=== PATIENT | female | born 1995 | race Caucasian/White ===

== ENCOUNTER 2017-01-02 19:37 | Emergency (ER) | payer MEDICAID ==
[2017-01-02 19:49] VITALS: BP 125/73; PULSE 93; RESP 15; TEMP 98.2; O2SAT 98
--- NOTE | 2017-01-02 20:20 | ED PDOC ---
HPI: Abdomen Time Seen by Provider: 01/02/17 19:55 Chief Complaint (Nursing): Rib Injury Chief Complaint (Provider): Abdominal pain History Per: Patient Additional Complaint(s): Patient is a 21 yo female, no PMH, presents to ED with complaints of complaining of intermittent left sided flank pain, worse with breathing at times , x 2 days. Pt reports the pain developed when she was at work yesterday and she had to go home early. Pt called out of work today and reports needing a note. No fever or chills. no nausea or vomiting. no uti like complaints. no analgesics taken thus far. Past Medical History Reviewed: Nursing Documentation, Vital Signs Vital Signs: Last Vital Signs Temp 98.2 F 01/02/17 19:45 Pulse 93 H 01/02/17 19:45 Resp 15 01/02/17 19:45 BP 125/73 01/02/17 19:45 Pulse Ox 98 01/02/17 20:20 - Medical History PMH: No Chronic Diseases - Surgical History Surgical History: No Surg Hx - Family History Family History: States: Unknown Family Hx - Living Arrangements Living Arrangements: With Family - Social History Current smoker - smoking cessation education provided: No Alcohol: None Drugs: Denies - Home Medications Home Medications: Ambulatory Orders Medication Instructions Recorded Naproxen [Naprosyn Tab] 250 mg PO BID PRN #20 tab 11/02/15 Naproxen [Naprosyn] 500 mg PO BID PRN #20 tablet 03/04/16 Cyclobenzaprine [Cyclobenzaprine 10 mg PO TID #20 tab 01/02/17 HCl] Ibuprofen [Motrin] 600 mg PO Q6 #20 tab 01/02/17 - Allergies Allergies/Adverse Reactions: Allergies Allergy/AdvReac Type Severity Reaction Status Date / Time No Known Allergies Allergy Verified 11/02/15 12:03 Review of Systems ROS Statement: Except As Marked, All Systems Reviewed And Found Negative Gastrointestinal: Positive for: Abdominal Pain Physical Exam - Reviewed Nursing Documentation Reviewed: Yes Vital Signs Reviewed: Yes - Physical Exam Appears: Positive for: Well, Non-toxic, No Acute Distress Head Exam: Positive for: ATRAUMATIC, NORMAL INSPECTION, NORMOCEPHALIC Skin: Positive for: Normal Color, Warm, DRY Eye Exam: Positive for: EOMI, Normal appearance, PERRL ENT: Positive for: Normal ENT Inspection Neck: Positive for: Normal, Painless ROM Cardiovascular/Chest: Positive for: Regular Rate, Rhythm Respiratory: Positive for: CNT, Normal Breath Sounds Gastrointestinal/Abdominal: Positive for: Bowel Sounds, Soft, Tenderness (mild left sided flank tenderness) Back: Positive for: Normal Inspection Extremity: Positive for: Normal ROM Neurologic/Psych: Positive for: Alert, Oriented - Laboratory Results Result Diagrams: 01/02/17 20:25 01/02/17 20:25 - ECG O2 Sat by Pulse Oximetry: 98 Medical Decision Making Medical Decision Making: Pt medicated with Toradol, good relief obtained. Diagnostics ordered Labs resulted and reviewed with Pt who demonstrated full understanding CXR: NAd, as read by VALERIE Pt reports feeling better and asking to go home with work note Disposition - Clinical Impression Clinical Impression: Flank pain - Patient ED Disposition Is Patient to be Admitted: No - Disposition Disposition: Routine/Home Disposition Time: 22:15 Condition: STABLE Prescriptions: Cyclobenzaprine [Cyclobenzaprine HCl] 10 mg PO TID #20 tab Ibuprofen [Motrin] 600 mg PO Q6 #20 tab Instructions: Flank Pain (ED) Forms: [facility] ED School/Work Excuse - POA Present On Arrival: None
[2017-01-02 20:32] LABS: BASO # 0.1 K/uL (0.0-0.2); BASO % 0.7 % (0.0-2.0); EOS # 0.1 K/uL (0.0-0.7); EOS % 1.1 % (0.0-4.0); HEMOGLOBIN 14.1 g/dL (12.0-16.0); LYMPH # 2.6 K/uL (1.0-4.3); LYMPH % 31.4 % (20.0-40.0); MEAN CELL VOLUME 95.3 fl (81.0-99.0); MEAN CORPUSCULAR HEMOGLOBIN 32.5 pg (27.0-31.0); MEAN CORPUSCULAR HGB CONC 34.1 g/dL (33.0-37.0); MEAN PLATELET VOLUME 9.4 fl (7.2-11.7); MONO # 0.6 K/uL (0.0-0.8); MONO % 7.1 % (0.0-10.0); NEUT # 4.9 K/uL (1.8-7.0); NEUT % 59.7 % (50.0-75.0); NRBC % 0.1 % (0.0-0.0); RBC 4.34 Mil/uL (3.80-5.20); RED CELL DISTRIBUTION WIDTH 12.8 % (11.5-14.5); WHITE BLOOD COUNT 8.2 K/uL (4.8-10.8)
[2017-01-02 20:39] LABS: ALB/GLOB RATIO 1.8 (1.0-2.1); ALBUMIN 4.5 g/dL (3.5-5.0); ALT/SGPT 33 U/L (9-52); AMYLASE 64 U/L (30-110); AST/SGOT 21 U/L (14-36); BLOOD UREA NITROGEN 15 mg/dl (7-17); CALCIUM 9.2 mg/dL (8.4-10.2); GFR AFRICAN-AMERICAN > 60; GFR NON-AFRICAN AMERICAN > 60; LIPASE 182 U/L (23-300)
[2017-01-02 21:38] LABS: SQUAMOUS EPITHIAL 8 /hpf (0-5); URINE BACTERIA RARE (<OCC); URINE BILIRUBIN NEGATIVE (NEGATIVE); URINE BLOOD NEGATIVE (NEGATIVE); URINE CLARITY CLOUDY (Clear); URINE COLOR YELLOW (YELLOW); URINE GLUCOSE (UA) NEG (Normal); URINE LEUKOCYTE ESTERASE NEG Leu/uL (Negative); URINE NITRATE NEGATIVE (NEGATIVE); URINE PROTEIN 30 mg/dL (NEGATIVE)
--- NOTE | 2017-01-03 10:34 | RAD ---
HISTORY: left rib pain COMPARISON: Chest dated 08/08/2016 TECHNIQUE: Chest PA and lateral FINDINGS: LUNGS: No active pulmonary disease. PLEURA: No significant pleural effusion identified. No pneumothorax apparent. CARDIOVASCULAR: Normal. OSSEOUS STRUCTURES: No significant abnormalities. VISUALIZED UPPER ABDOMEN: Normal. OTHER FINDINGS: . In situ bilateral nipple rings. IMPRESSION: No active disease.
== END 2017-01-02 22:37 | disposition home or self-care (01) ==
LOC: H.ER 19:37
DX: R10.9 Unspecified abdominal pain (principal)

== ENCOUNTER 2017-05-24 20:45 | Emergency (ER) | payer MEDICAID ==
[2017-05-24 20:58] VITALS: BP 103/63; PULSE 94; RESP 16; TEMP 98; O2SAT 97
--- NOTE | 2017-05-24 21:17 | ED PDOC ---
HPI: Female Pain Time Seen by Provider: 05/24/17 20:59 Chief Complaint (Nursing): Female Genitourinary Chief Complaint (Provider): vaginal pain History Per: Patient History/Exam Limitations: no limitations Onset/Duration Of Symptoms: Days (2 weeks) Current Symptoms Are (Timing): Still Present Quality Of Discomfort: Cramping Additional Complaint(s): Vaginal burning and pain for 2 weeks worsening since onset, today after sexual intercourse, pain worsened associated with some blood when wiping, however she also reports that she is due for her period. +dysuria. No frequency. No discharge. Reports that she believes her vaginal area appears very red. Past Medical History Reviewed: Historical Data, Nursing Documentation, Vital Signs Vital Signs: Last Vital Signs Temp 98 F 05/24/17 20:56 Pulse 94 H 05/24/17 20:56 Resp 16 05/24/17 20:56 BP 103/63 05/24/17 20:56 Pulse Ox 97 05/24/17 20:56 - Medical History PMH: No Chronic Diseases - Surgical History Surgical History: No Surg Hx - Family History Family History: States: Diabetes - Social History Current smoker - smoking cessation education provided: Yes Alcohol: None - Home Medications Home Medications: Ambulatory Orders Medication Instructions Recorded Naproxen [Naprosyn Tab] 250 mg PO BID PRN #20 tab 11/02/15 Naproxen [Naprosyn] 500 mg PO BID PRN #20 tablet 03/04/16 Cyclobenzaprine [Cyclobenzaprine 10 mg PO TID #20 tab 01/02/17 HCl] Ibuprofen [Motrin] 600 mg PO Q6 #20 tab 01/02/17 Fluconazole [Diflucan] 150 mg PO QWK #2 tab 05/24/17 Ibuprofen [Motrin Tab] 600 mg PO Q8 PRN #60 tab 05/24/17 - Allergies Allergies/Adverse Reactions: Allergies Allergy/AdvReac Type Severity Reaction Status Date / Time No Known Allergies Allergy Verified 11/02/15 12:03 Review of Systems ROS Statement: Except As Marked, All Systems Reviewed And Found Negative Gastrointestinal: Negative for: Nausea, Vomiting, Abdominal Pain Genitourinary Female: Positive for: Dysuria, Vaginal Bleeding, Pelvic Pain. Negative for: Frequency, Hematuria, Vaginal Discharge Physical Exam - Reviewed Nursing Documentation Reviewed: Yes Vital Signs Reviewed: Yes - Physical Exam Appears: Positive for: Non-toxic, In Acute Distress (mild painful) Head Exam: Positive for: ATRAUMATIC, NORMOCEPHALIC Skin: Positive for: Warm, Dry Gastrointestinal/Abdominal: Positive for: Soft. Negative for: Tenderness Pelvic Exam: Positive for: No Cerv. Motion Tender, Blood (just prior to exam pt reports that it looks like her period has started), Other (External genitalia with erythema at vulva. No visible lesions or papules.) Back: Positive for: Normal Inspection Lymphatic: Negative for: Inguinal Node Tenderness Neurologic/Psych: Positive for: Alert. Negative for: Motor/Sensory Deficits - Laboratory Results Urine dip results: Positive for: Blood, Ketones, Bilirubin, Protein. Negative for: Leukocyte Esterase, Nitrate, Glucose - ECG O2 Sat by Pulse Oximetry: 97 Disposition - Clinical Impression Clinical Impression: Dysmenorrhea in adolescent, Vaginitis Counseled Patient/Family Regarding: Studies Performed, Diagnosis, Need For Followup, Rx Given - Disposition Disposition: Routine/Home Disposition Time: 22:00 Condition: STABLE Additional Instructions: FOLLOW UP WITH THE [facility] IN 2 WEEK FOR REEVALUATION Prescriptions: Fluconazole [Diflucan] 150 mg PO QWK #2 tab Ibuprofen [Motrin Tab] 600 mg PO Q8 PRN #60 tab PRN Reason: Pain, Moderate (4-7) Instructions: Vaginitis (ED), Dysmenorrhea (ED)
== END 2017-05-24 22:39 | disposition home or self-care (01) ==
LOC: H.ER 20:45
DX: N76.0 Acute vaginitis (principal); N94.6 Dysmenorrhea, unspecified

== ENCOUNTER 2017-11-13 08:48 | Emergency (ER) | payer MEDICAID, OTHER ==
[2017-11-13 08:52] VITALS: O2SAT 100
[2017-11-13 08:53] VITALS: BMI 29.5
[2017-11-13] MEDS ORDERED: Sodium Chloride 0.9% 1,000 ML IV STA (09:16)
--- NOTE | 2017-11-13 09:19 | ED PDOC ---
HPI: Female Pain Time Seen by Provider: 11/13/17 08:58 Chief Complaint (Nursing): Abdominal Pain Chief Complaint (Provider): pelvic pain History Per: Patient History/Exam Limitations: no limitations Onset/Duration Of Symptoms: Days (5 weeks) Current Symptoms Are (Timing): Still Present Additional Complaint(s): Pt. with pelvic cramps like her period. Is 5 weeks preg. No vaginal bleeding , chest pain, dyspnea, weakness. Has nausea, no vomit. Has headache to the left frontal area but is not the worst in her life. Is like her usual migraines. Gradual onset. No neck pain, numbness, tingles, vision changes. Past Medical History Reviewed: Nursing Documentation, Vital Signs Vital Signs: Last Vital Signs Temp 97 F L 11/13/17 08:52 Pulse 112 H 11/13/17 08:52 Resp 16 11/13/17 08:59 BP 119/73 11/13/17 08:52 Pulse Ox 100 11/13/17 08:52 - Medical History PMH: Migraine - Surgical History Surgical History: No Surg Hx - Family History Family History: States: Unknown Family Hx - Home Medications Home Medications: Ambulatory Orders Medication Instructions Recorded Naproxen [Naprosyn Tab] 250 mg PO BID PRN #20 tab 11/02/15 Naproxen [Naprosyn] 500 mg PO BID PRN #20 tablet 03/04/16 Cyclobenzaprine [Cyclobenzaprine 10 mg PO TID #20 tab 01/02/17 HCl] Ibuprofen [Motrin] 600 mg PO Q6 #20 tab 01/02/17 Fluconazole [Diflucan] 150 mg PO QWK #2 tab 05/24/17 Ibuprofen [Motrin Tab] 600 mg PO Q8 PRN #60 tab 05/24/17 Nitrofurantoin Macrocrystals 100 mg PO BID #10 cap 11/13/17 [Macrobid] - Allergies Allergies/Adverse Reactions: Allergies Allergy/AdvReac Type Severity Reaction Status Date / Time No Known Allergies Allergy Verified 11/02/15 12:03 Review of Systems ROS Statement: Except As Marked, All Systems Reviewed And Found Negative Gastrointestinal: Positive for: Nausea Genitourinary Female: Positive for: Pelvic Pain Neurological: Positive for: Headache Physical Exam - Reviewed Nursing Documentation Reviewed: Yes Vital Signs Reviewed: Yes - Physical Exam Appears: Positive for: Non-toxic, No Acute Distress Head Exam: Positive for: ATRAUMATIC, NORMAL INSPECTION, NORMOCEPHALIC Skin: Positive for: Normal Color, Warm, DRY Eye Exam: Positive for: EOMI, Normal appearance, PERRL ENT: Positive for: Normal ENT Inspection Neck: Positive for: Normal, Painless ROM, Supple Cardiovascular/Chest: Positive for: Regular Rate, Rhythm Respiratory: Positive for: CNT, Normal Breath Sounds Gastrointestinal/Abdominal: Positive for: Normal Exam, Soft. Negative for: Tenderness Back: Positive for: Normal Inspection. Negative for: L CVA Tenderness, R CVA Tenderness Extremity: Positive for: Normal ROM. Negative for: Tenderness, Pedal Edema Neurologic/Psych: Positive for: Alert, nutter up II-XII, Oriented. Negative for: Motor/Sensory Deficits, Aphasia, Facial Droop - Laboratory Results Result Diagrams: 11/13/17 09:49 11/13/17 09:49 Interpretation Of Abn Labs: bhcg elevated; urine wbc Urine POC: Positive Urine dip results: Positive for: Leukocyte Esterase - ECG O2 Sat by Pulse Oximetry: 100 Pulse Ox Interpretation: Normal - CT Scan/US US Other Rad Studies (CT/US): Read By Radiologist Other Rad Interpretation: gestational sac - Progress ED Course And Treament: 1216: No pain. Stable. AAOx3. Tolerated PO. Fu with obgyn in 3 days. Pt. to come back or see obgyn in 3 days for repeat US and beta hcg to make sure no ectopic present. No pole seen. Disposition - Clinical Impression Clinical Impression: Threatened , UTI (urinary tract infection) - Patient ED Disposition Is Patient to be Admitted: No Counseled Patient/Family Regarding: Studies Performed, Diagnosis, Need For Followup - Disposition [facility]errals[facility] - 11/15/17 Disposition: Routine/Home Disposition Time: 12:18 Condition: STABLE Additional Instructions: Return in 3 days or go to your obgyn for repeat ultrasound and beta hcg level. We need to get further evaluation to make sure your is progressing and there is ectopic (which can be harmful to you). Prescriptions: Nitrofurantoin Macrocrystals [Macrobid] 100 mg PO BID #10 cap Instructions: Urinary Tract Infections in Adults, Threatened Miscarriage (DC) Forms: [employer] ([place]ese), [facility] ED School/Work Excuse
[2017-11-13 10:03] LABS: BLOOD UREA NITROGEN 10 mg/dl (7-17); CALCIUM 9.6 mg/dL (8.4-10.2); GFR AFRICAN-AMERICAN > 60; GFR NON-AFRICAN AMERICAN > 60
[2017-11-13 10:06] LABS: SQUAMOUS EPITHIAL 30 /hpf (0-5); URINE AMORPHOUS SEDIMENT RARE /ul (<OCC); URINE BILIRUBIN NEGATIVE (NEGATIVE); URINE BLOOD NEGATIVE (NEGATIVE); URINE CLARITY TURBID (Clear); URINE COLOR AMBER (YELLOW); URINE GLUCOSE (UA) NEG (Normal); URINE LEUKOCYTE ESTERASE MOD Leu/uL (Negative); URINE PROTEIN 100 mg/dL (NEGATIVE); URINE UROBILINOGEN 0.2-1.0 mg/dL (0.2-1.0)
[2017-11-13 10:22] LABS: BASO % 0.4 % (0.0-2.0); EOS % 0.7 % (0.0-4.0); HEMOGLOBIN 15.3 g/dL (12.0-16.0); LYMPH # 1.8 K/uL (1.0-4.3); MEAN CELL VOLUME 93.8 fl (81.0-99.0); MEAN CORPUSCULAR HEMOGLOBIN 33.7 pg (27.0-31.0); MEAN CORPUSCULAR HGB CONC 35.9 g/dL (33.0-37.0); MONO # 0.5 K/uL (0.0-0.8); MONO % 7.1 % (0.0-10.0); NEUT # 4.7 K/uL (1.8-7.0); NEUT % 66.8 % (50.0-75.0); NRBC % 0.2 % (0.0-0.0); RBC 4.54 Mil/uL (3.80-5.20); RED CELL DISTRIBUTION WIDTH 12.2 % (11.5-14.5); WHITE BLOOD COUNT 7.1 K/uL (4.8-10.8)
--- NOTE | 2017-11-13 11:48 | US ---
PROCEDURE: OB Pelvic Ultrasound HISTORY: preg and pain COMPARISON: None available. FINDINGS: UTERUS: Intrauterine gestational sac identified. pole not visualized. Gestational sac diameter 13 mm, equivalent to 5 weeks 4 days gestation Date of delivery (Ultrasound estimated) : 05/12/2019 No detectable cardiac activity [place]-gestational hemorrhage: None. 2 mm yolk sac visualized. Uterus measures 7.7 x 4.5 x 6.3 cm. No mass CERVIX: Long and closed. No cervical abnormality seen. RIGHT OVARY: Measures 2.9 x 1.4 x 2.1 cm. No mass. Normal flow. LEFT OVARY: Measures 3.0 x 1.9 x 3.0 cm. No mass. Normal flow. Corpus luteum, 1.4 x 1.4 x 1.8 cm. FREE FLUID: None. OTHER FINDINGS: None. IMPRESSION: Intrauterine gestational sac equivalent to 5 weeks 4 days by sac diameter. No pole or cardiac activity observed. Followup with transvaginal pelvic ultrasound and serial beta HCG advised.
[2017-11-13 12:36] VITALS: BP 108/61; PULSE 80; RESP 18; TEMP 98.8
== END 2017-11-13 12:34 | disposition home or self-care (01) ==
LOC: H.ER 08:48
DX: O20.0 Threatened abortion (principal); O23.41 Unspecified infection of urinary tract in pregnancy, first trimester; Z3A.01 Less than 8 weeks gestation of pregnancy
CPT/HCPCS: 76817; 80048; 81003; 81025; 84702; 85025; 86850; 86900; 96360; 99285; J2765; J7040

== ENCOUNTER 2017-11-16 11:09 | Emergency (ER) | payer MEDICAID, OTHER ==
[2017-11-16 11:27] VITALS: BMI 29.2
--- NOTE | 2017-11-16 12:16 | ED PDOC ---
HPI: Female Pain Time Seen by Provider: 11/16/17 11:48 Chief Complaint (Nursing): Female Genitourinary Chief Complaint (Provider): Repeat bhcg History Per: Patient History/Exam Limitations: no limitations Onset/Duration Of Symptoms: Days (3) Current Symptoms Are (Timing): Still Present Additional Complaint(s): Pt. with pelvic pain Sat so came and had evaluation. Dx with preg and no pole. Advised to repeat blood work and get a repeat US. Pt. here for repeat eval. Did not go to her OBGYN. Has no pain, weakness, nausea, vomit, diarrhea , vaginal bleeding. Past Medical History Reviewed: Nursing Documentation, Vital Signs Vital Signs: Last Vital Signs Temp 97 F L 11/16/17 11:25 Pulse 90 11/16/17 11:25 Resp BP 97/66 L 11/16/17 11:25 Pulse Ox 99 11/16/17 11:25 - Medical History PMH: Migraine - Surgical History Surgical History: No Surg Hx - Family History Family History: States: Unknown Family Hx - Home Medications Home Medications: Ambulatory Orders Medication Instructions Recorded Naproxen [Naprosyn Tab] 250 mg PO BID PRN #20 tab 11/02/15 Naproxen [Naprosyn] 500 mg PO BID PRN #20 tablet 03/04/16 Cyclobenzaprine [Cyclobenzaprine 10 mg PO TID #20 tab 01/02/17 HCl] Ibuprofen [Motrin] 600 mg PO Q6 #20 tab 01/02/17 Fluconazole [Diflucan] 150 mg PO QWK #2 tab 05/24/17 Ibuprofen [Motrin Tab] 600 mg PO Q8 PRN #60 tab 05/24/17 Nitrofurantoin Macrocrystals 100 mg PO BID #10 cap 11/13/17 [Macrobid] - Allergies Allergies/Adverse Reactions: Allergies Allergy/AdvReac Type Severity Reaction Status Date / Time No Known Allergies Allergy Verified 11/02/15 12:03 Review of Systems ROS Statement: Except As Marked, All Systems Reviewed And Found Negative Physical Exam - Reviewed Nursing Documentation Reviewed: Yes Vital Signs Reviewed: Yes - Physical Exam Appears: Positive for: Well, Non-toxic, No Acute Distress Head Exam: Positive for: ATRAUMATIC, NORMAL INSPECTION, NORMOCEPHALIC Skin: Positive for: Normal Color, Warm, DRY Eye Exam: Positive for: EOMI, Normal appearance, PERRL ENT: Positive for: Normal ENT Inspection Neck: Positive for: Normal, Painless ROM Cardiovascular/Chest: Positive for: Regular Rate, Rhythm Respiratory: Positive for: CNT, Normal Breath Sounds Gastrointestinal/Abdominal: Positive for: Normal Exam, Soft. Negative for: Tenderness Back: Positive for: Normal Inspection Extremity: Positive for: Normal ROM Neurologic/Psych: Positive for: Alert, Oriented - ECG O2 Sat by Pulse Oximetry: 99 Pulse Ox Interpretation: Normal - Progress ED Course And Treament: 1457: Stable. AAOx3. Pain free. Tolerated PO. Fu with pcp. Disposition - Clinical Impression Clinical Impression: Threatened - Patient ED Disposition Is Patient to be Admitted: No Counseled Patient/Family Regarding: Studies Performed, Diagnosis, Need For Followup - Disposition Referrals: [facility] [Outside] - 11/17/17 [facility] [[facility] - 11/17/17 Disposition: Routine/Home Disposition Time: 14:58 Condition: STABLE Additional Instructions: Return if not better in 3 days. Instructions: Threatened Miscarriage
--- NOTE | 2017-11-16 15:14 | US ---
HISTORY: preg and pain COMPARISON: 11/13/2017. TECHNIQUE: Standard protocol for this study/examination. FINDINGS: LMP: 10/07/2017 Prior examinations from the current : 11/13/2017 TECHNIQUE: Real-time 2D imaging, duplex and color Doppler. FINDINGS: Cardiac activity: Present Rate: 116 BPM Measurements: Shellman rump length: 0.27 cm Gestational age based on CRL 5 weeks 6 days Gestational age 5 weeks 4 days based on gestational sac measurement 1.3 80 cm Gestational age derived from LMP: 5 weeks 5 days GAYATHRI based on LMP: 07/14/2018 GAYATHRI based on biometry: 07/14/2018 Gestational concordance documented Yolk sac identified Uterus: Unremarkable. Cervix: No Cervical abnormalities: Negative examination for cervical dilatation or effacement. Closed cervix measuring 4.2 cm Incidental finding: Nabothian cysts the largest measures less than 1 cm. Subchorionic hemorrhage: None UTERUS: 4.5 x 6.4 x 9.2 cm. ADNEXA: Right: 1.2 x 2 x 3.1 cm. Normal Doppler arterial waveform documented. Left: 2 x 2.7 x 2.8 cm. Multiple subcentimeter follicles. Simple cyst 1.5 x 1 x 1.7 cm. Normal Doppler arterial waveform documented Fluid in the cul-de-sac: OTHER FINDINGS: None. IMPRESSION: Five weeks 5 days live intrauterine gestation. Gestational concordance documented.
[2017-11-16 15:25] VITALS: BP 108/68; PULSE 66; RESP 16; TEMP 98.2; O2SAT 100
== END 2017-11-16 15:00 | disposition home or self-care (01) ==
LOC: H.ER 11:09
DX: O20.0 Threatened abortion (principal)

== ENCOUNTER 2018-06-09 11:42 | Emergency (ER) | payer OTHER ==
[2018-06-09 18:59] VITALS: BP 112/69; PULSE 84; RESP 18; TEMP 98; O2SAT 100
== END 2018-06-09 14:40 | disposition home or self-care (01) ==
LOC: H.EROB2 11:42 → H.L&D 12:24 → H.EROB2 14:40
DX: O34.63 Maternal care for abnormality of vagina, third trimester (principal); N89.8 Other specified noninflammatory disorders of vagina; Z3A.35 35 weeks gestation of pregnancy

== ENCOUNTER 2018-06-25 23:36 | Emergency (ER) | payer OTHER ==
[2018-06-26 00:31] VITALS: BMI 36.2
[2018-06-26] MEDS ORDERED: Lactated Ringer's 500 ML IV SCH (00:45)
--- NOTE | 2018-06-26 01:03 | OBHP ---
Datetime: 06/26/2018 00:46 IP Adm Impression: Term, intrauterine ; No Active Labor IP Chief Complaint Other: Backpain IP Adm Impression Other: Backpain with vomiting IP Admit Plan: Observation/Evaluation; Discharge home Admit Comment, IP Provider: 22yo @ 37w3d reports to the triage reporting of some back pains which lopez d started about 1 day ago. She reports of some discomfort in the epigastric area and refered to the b ack bilaterally. She denies any cough, urinary symptoms or febrile illness. She has moved her bowels and have cassy ated meals today. OBHX: PNC with Dr Leon and has been uncomplicated. PMHx: non contributory Social Hx: No toxic habits. O: Afebrile Heart: RRR Chest: Clinically CTA B/L Abd: Soft, Mild tendermness in the epigastrium, no rebound CVA Tenderness- Neagative B/L Extremities Normal Assessment: IUP at 37wks Gastritis Back Pain NST Reactive. Patient had vomitting X1 during exam Plan: -IV Fluid - CMP, Amylase, lipase - Tylenol - Maalox D/C Home when labs are normal and patient improved F/U with Dr Lara within 1 week. Extremities - PN: Normal Abdomen - PN: Normal Breast - PN: Normal Lungs - PN: Normal Heart - PN: Normal General - PN: Normal FHR - Baseline A Provider: 130 Membranes, Provider: Intact Contraction Comments Provider: None Gestation - Est Wks by US: 37.0 EGA AdmitDate IP: 37.3 IP Chief Complaint: Illness; Other NICHD Variability Prov Fetus A: Moderate 6-25bpm NICHD Accel Fetus A IP Provider: [id number] FHR Category Provider Fetus A: Category I NICHD Decel Fetus A IP Provider: None Dilatation, Provider: 0 Genitourinary Exam: Normal
[2018-06-26 01:34] LABS: ALB/GLOB RATIO 1.1 (1.0-2.1); ALBUMIN 3.4 g/dL (3.5-5.0); ALT/SGPT 12 U/L (9-52); AMYLASE 54 U/L (30-110); AST/SGOT 18 U/L (14-36); BLOOD UREA NITROGEN 9 mg/dl (7-17); CALCIUM 9.3 mg/dL (8.4-10.2); GFR NON-AFRICAN AMERICAN > 60; LIPASE 65 U/L (23-300)
[2018-06-26] MEDS ORDERED: Alum-Mag Hydrox-Simethicone Susp (30 mL) PO ONE (01:37)
[2018-06-26 07:03] VITALS: BP 114/76; PULSE 96; RESP 18; TEMP 98.1
== END 2018-06-26 02:40 | disposition home or self-care (01) ==
LOC: H.EROB2 23:36
DX: O21.0 Mild hyperemesis gravidarum (principal); O26.93 Pregnancy related conditions, unspecified, third trimester; R10.13 Epigastric pain; Z3A.37 37 weeks gestation of pregnancy
CPT/HCPCS: 80053; 82150; 83690; 99283; J7120

== ENCOUNTER 2018-07-01 02:04 | Inpatient (IN) | payer OTHER ==
[2018-07-01 03:35] VITALS: BMI 36.7
[2018-07-01] MEDS ORDERED: Nalbuphine 20 mg/ml Inj (1 ml) IVP PRN (03:37)
[2018-07-01] MEDS ORDERED: Lactated Ringer's 500 ML IV SCH (03:45)
[2018-07-01] MEDS ORDERED: Nalbuphine HCL 10 mg/ml Ampule ONE (04:18)
[2018-07-01] MEDS: Lactated Ringer's 1,000 ML IV SCH ×2 (05:00→09:45)
[2018-07-01 05:01] LABS: BASO % 0.2 % (0.0-2.0); EOS % 0.3 % (0.0-4.0); HEMOGLOBIN 15.7 g/dL (12.0-16.0); MEAN CELL VOLUME 96.2 fl (81.0-99.0); MEAN CORPUSCULAR HEMOGLOBIN 33.3 pg (27.0-31.0); MEAN CORPUSCULAR HGB CONC 34.6 g/dL (33.0-37.0); MEAN PLATELET VOLUME 10.2 fl (7.2-11.7); MONO # 0.7 K/uL (0.0-0.8); MONO % 4.7 % (0.0-10.0); NEUT # 11.5 K/uL (1.8-7.0); NEUT % 80.8 % (50.0-75.0); NRBC % 0.2 % (0.0-0.0); RBC 4.69 Mil/uL (3.80-5.20); RED CELL DISTRIBUTION WIDTH 12.6 % (11.5-14.5); WHITE BLOOD COUNT 14.2 K/uL (4.8-10.8)
[2018-07-01] MEDS ORDERED: Lactated Ringer's 1,000 ML IV ONE (08:13)
[2018-07-01] MEDS ORDERED: Fentanyl/Bupivacaine HCl 250 ML EPI ONE (08:41)
[2018-07-01] MEDS ORDERED: Oxytocin 30 UNIT 30 UNITS/500 ML BAG IV ONE ×2 (10:37→10:57)
[2018-07-01] MEDS ORDERED: OXYTOCIN/0.9 % NS 20 UNIT/1,000 ML BAG IV SCH (11:00)
--- NOTE | 2018-07-01 15:57 | OBADHP ---
Datetime: 07/01/2018 03:11 IP Chief Complaint Other: abdominal/back pain Admit Comment, IP Provider: 22 y/o female at 38.1 wk GA presents to [facility] w/ c/o abdominal pain 10/10 in severity that started yesterday evening 11PM. She denies vaginal bleeding/fluid loss. She endorse s movements. She denies urinary symptoms or febrile illness. She denies n/v/c/d. Patient was se en by Dr. Gómez yesteraday; cervical exam: closed cervix OBHX: Dr. Gómez PMHx: denies Social Hx: No toxic habits. FamHx: non-contributory Sughx: denies HomeRx: vitamins Allergies:NKDA ROS negative except as above O: Afebrile Gen: sitting in bed comfortably, not in acute distress Heart: S1 S2 present, RRR Chest: CTA B/L, normal breathing effort Abd: Gravid, soft, non-tender Extremities Normal Assessment and Plan: 22 y/o female w/ no pmhx presents w/ IUP at 38.1 wks w/ c/o abdominal pain NST Reactive. [place]: contractions q5mins Cervical exam: 3 cm dilated, 70% dilated 3:25AM Nubain for pain IV fluid hydration, LR 500 mL bolus, LR 1000mL at 125mL/hr Will monitor patient, and reevaluate in 3-4 hours thiago Cobos (Annotations: Data stored by CPN on behalf of user) Pelvic Type - PN: Adequate Extremities - PN: Normal Abdomen - PN: Normal Back - PN: Normal Breast - PN: Not Done Lungs - PN: Normal Heart - PN: Normal Thyroid - PN: Not Done Neurologic - PN: Not Done HEENT - PN: Normal General - PN: Normal FHR - Baseline A Provider: 145 Contraction Comments Provider: [id number] Comments, ACOG Physical Exam: Cervical exam Gestation - Est Wks by US: 38.1 Vital Signs Provider: Reviewed; Within Normal Limits IP Chief Complaint: Other NICHD Variability Prov Fetus A: Moderate 6-25bpm NICHD Accel Fetus A IP Provider: [id number] NICHD Decel Fetus A IP Provider: None Dilatation, Provider: 3 Effacement, Provider: 70 Genitourinary Exam: Not Done DTRs - PN: Not Done EGA AdmitDate IP: 38.1 IP Adm Impression: Term, intrauterine ; Active labor IP Admit Plan: Observation/Evaluation Datetime: 06/26/2018 00:46 IP Adm Impression Other: Backpain with vomiting Membranes, Provider: Intact FHR Category Provider Fetus A: Category I
--- NOTE | 2018-07-01 16:02 | OBDS ---
DELIVERY PERSONNEL Delivery Doctor: Jennifer Gómez MD Feed Miller: Jessica Thakkar RN MATERNAL INFORMATION Delivery Anesthesia: Epidural Medications in Delivery: pitocin 30units Estimated Blood Loss (ml): 300 Placenta Cultured: No Maternal Complications: None Provider Comments: delivery of live baby girl 9/9 meconium fluidfluid with nucal chord and fir st degree laceration and repair LABOR SUMMARY EDC: 07/14/2018 00:00 No. Babies in Womb: 0 Attempted: No Labor Anesthesia: Epidural LABOR INFORMATION Reason for Induction: Not Applicable Onset of Labor: 07/01/2018 02:00 Complete Dilatation: 07/01/2018 14:38 Oxytocin: N/A Group B Beta Strep: N/A Antibiotics # of Doses: n/a Steroids Given: None Reason Steroids Not Administered: Not Applicable MEMBRANES Membranes Rupture Method: Artificial Rupture of Membranes: 07/01/2018 14:00 Length of Rupture (hrs): 1.38 Amniotic Fluid Color: Heavy Meconium Amniotic Fluid Amount: Moderate Amniotic Fluid Odor: Normal STAGES OF LABOR Stage 1 hrs: 12 Stage 1 min: 38 Stage 2 hrs: 0 Stage 2 min: 45 Stage 3 hrs: 0 Stage 3 min: -56 Total Time in Labor hrs: 12 Total Time in Labor min: 27 VAGINAL DELIVERY Episiotomy: None Laceration Extension: First Degree Laceration Type: Perineal Initial Vag Sponge Count: 5 laps with ring Final Vag Sponge Count: 5 laps with ring Initial Vag Sharps Count: 1 needle, 1 suture. Final Vag Sharps Count: 1 needle, 1 suture. Sponge Count Correct: Yes; Vaginal Sweep Performed Sharps Count Correct: Yes Count Comment: correct BABY A INFORMATION Infant Delivery Date/Time: 07/01/2018 15:23 Method of Delivery: Vaginal Born in Route : No : N/A Forceps: N/A Vacuum Extraction: N/A Shoulder Dystocia : No SHOULDER DYSTOCIA BABY A Infant Delivery Date/Time: 07/01/2018 15:23 PRESENTATION/POSITION BABY A Presentation: Cephalic Cephalic Presentation: Vertex Breech Presentation: N/A PLACENTA INFORMATION BABY A Placenta Delivery Time : 07/01/2018 14:27 Placenta Method of Delivery: Spontaneous Placenta Status: Delivered SCORES BABY A Heart Rate 1 min: >100 bpm Resp Effort 1 min: Good Cry Reflex Irritability 1 min: Cough or Sneeze or Pulls Away Muscle Tone 1 min: Active Motion Color 1 min: Body [place], Extremities Blue Resuscitation Effort 1 min: Tactile Stimulation SCORE 1 MIN: 9 Heart Rate 5 min: >100 bpm Resp Effort 5 min: Good Cry Reflex Irritability 5 min: Cough or Sneeze or Pulls Away Muscle Tone 5 min: Active Motion Color 5 min: Body [place], Extremities Blue Resuscitation Effort 5 min: N/A SCORE 5 MIN: 9 INFORMATION BABY A Gestational Age at Delivery: 38.2 Gestational Status: Term Infant Outcome : Liveborn Infant Condition : Stable Sex: Female IDENTIFICATION/MEDS BABY A ID Band Number: [id number] ID Band Location: Left Leg; Left Arm WEIGHT/LENGTH BABY A Infant Birthweight (gms): 2900 Weight (lb): 6 Weight (oz): 6 CORD INFORMATION BABY A No. Cord Vessels: 3 Nuchal Cord : Around Neck x1, Loose Cord Blood Taken: Yes Suction: None ASSESSMENT BABY A Infant Complications: None Physical Findings at Delivery: Within Normal Limits Infant Respirations: Appears Normal Glue Sprayer/ALS Called : No Care By: Dr. Carter Transferred To: [facility]
[2018-07-01] MEDS ORDERED: Benzocaine/Menthol SPRAY TOP PRN ×2 (16:04→17:51)
[2018-07-01] MEDS ORDERED: OXYTOCIN/0.9 % NS 20 UNIT/1,000 ML BAG IV ONE (16:04)
[2018-07-01] MEDS ORDERED: Acetaminophen-Codeine 300/30 mg Tab PO PRN ×2 (16:04→17:51)
[2018-07-01] MEDS ORDERED: Oxycodone/Acetaminophen 5/325 mg Tab PO PRN ×2 (16:04→17:51)
[2018-07-02] MEDS ORDERED: Multivitamin With Minerals Tab PO SCH (09:00)
--- NOTE | 2018-07-02 09:10 | OBPPN ---
Datetime: 07/02/2018 09:04 PP Pain Prov: Within normal limits PP Nausea Prov: Denies PP Flatus Prov: Yes PP BM Prov: No PP Breasts Prov: Normal PP Heart Prov: Normal PP Lungs Prov: Normal PP Abdomen/Uterus Prov: Normal PP Lochia Prov: Normal PP Vulva/Perineum Prov: Normal PP CVA Tenderness Prov: Normal PP Extremities Prov: Normal PP Progress Prov: Normal PP Impression Prov: Normal progression PP Plan Prov: Continue present management PP Progress Note Prov: stable ppd1 no complaints today continue present care IP PP Procedures: None Vital Signs Provider PP: Reviewed; Within Normal Limits
[2018-07-02] MEDS: Multivitamin With Minerals Tab PO SCH (10:19)
[2018-07-02 18:27] LABS: BASO # 0.1 K/uL (0.0-0.2); BASO % 0.5 % (0.0-2.0); EOS # 0.1 K/uL (0.0-0.7); EOS % 0.9 % (0.0-4.0); HEMOGLOBIN 13.5 g/dL (12.0-16.0); LYMPH # 3.1 K/uL (1.0-4.3); LYMPH % 21.7 % (20.0-40.0); MEAN CELL VOLUME 97.3 fl (81.0-99.0); MEAN CORPUSCULAR HEMOGLOBIN 33.2 pg (27.0-31.0); MEAN CORPUSCULAR HGB CONC 34.2 g/dL (33.0-37.0); MEAN PLATELET VOLUME 9.5 fl (7.2-11.7); NEUT % 69.9 % (50.0-75.0); RBC 4.07 Mil/uL (3.80-5.20); RED CELL DISTRIBUTION WIDTH 12.9 % (11.5-14.5); WHITE BLOOD COUNT 14.3 K/uL (4.8-10.8)
[2018-07-03] MEDS: Multivitamin With Minerals Tab PO SCH (09:12)
--- NOTE | 2018-07-03 12:51 | OBPPN ---
Datetime: 07/03/2018 12:48 PP Pain Prov: Within normal limits PP Pain Prov comment: no SOB, chest or leg pains PP Nausea Prov: Denies PP Flatus Prov: Yes PP BM Prov: Yes PP Breasts Prov: Normal PP Lungs Prov: Normal PP Abdomen/Uterus Prov: Abnormal PP CVA Tenderness Prov: Normal PP Extremities Prov: Normal PP C/S Incision Prov: Not Applicable PP Progress Prov: Not Applicable PP Comments Phys Exam Prov: breast soft not engorged; Abd soft ND depressible fundus firm below the umb NT; Ext no calf tenderness PP Impression Prov: Normal progression PP Plan Prov: Discharge PP Progress Note Prov: D/C home with instructions and continue PP care and follow up office 4-6 wks IP PP Procedures: None Vital Signs Provider PP: Reviewed
--- NOTE | 2018-07-03 12:53 | OBDCSUM ---
Datetime: 07/03/2018 12:51 Discharged to, Provider: Home Follow up at, Provider: Dr Chase Disch Instr Activity: Bedrest; May be up to bathroom; May be up for meals; May Shower Disch Instr Diet: Regular Discharge Instructions, Provider: Routine instructions given Discharge Diagnosis, Provider: Term Delivered Discharge Time: 07/03/2018 12:51 Follow up in weeks, Provider: 4-6 wks Contraception discussed, Prov: Yes Disch Activity Restrictions: No exercising; No lifting; No driving; Minimize walking; Minimize stair -climbing; No sexual activity; Nothing in vagina - [place], tampons, douche Discharge Comment, Provider: Continue PNC vit and iron Contraception after Delivery: Undecided
[2018-07-03] MEDS ORDERED: Measles, Mumps, and Rubella 0.5 ML VIAL SC ONE (13:27)
[2018-07-03 23:17] VITALS: BP 120/81; PULSE 88; RESP 20; TEMP 98.2; O2SAT 100
== END 2018-07-03 15:55 | disposition home or self-care (01) | DRG 373 ==
LOC: H.EROB2 02:04 → H.L&D 08:13 → H.OB/GYN 17:50
PROVIDERS: ADMIT Specialist; ATTEND Specialist
PROC: 10E0XZZ Delivery of Products of Conception, External Approach (ICD-10-PCS; principal; 2018-07-01)
PROC: 4A1HXCZ Monitoring of Products of Conception, Cardiac Rate, External Approach (ICD-10-PCS; 2018-07-01)
PROC: 0HQ9XZZ Repair Perineum Skin, External Approach (ICD-10-PCS; 2018-07-01)
DX: O70.0 First degree perineal laceration during delivery (principal); O69.81X0 Labor and delivery complicated by cord around neck, without compression, not applicable or unspecified; Z3A.38 38 weeks gestation of pregnancy; Z37.0 Single live birth